=== PATIENT | female | born 1960 | race African-American/Black ===

== ENCOUNTER 2020-04-03 13:29 | Emergency (ER) | payer MEDICARE, SELFPAY ==
[2020-04-03 13:30] VITALS: BP 195/101; PULSE 85; RESP 16; TEMP 36.6; O2SAT 99; BMI 42.2
--- NOTE | 2020-04-03 13:42 | NURSING ---
NO OLD EKGS
--- NOTE | 2020-04-03 14:18 | ED.RN ---
PCP Dr. Stuart [phone] sheila
--- NOTE | 2020-04-03 14:22 | EKG12_ITS ---
Test Reason : CP Blood Pressure : / mmHG Vent. Rate : 085 BPM Atrial Rate : 085 BPM P-R Int : 132 ms QRS Dur : 078 ms QT Int : 394 ms P-R-T Axes : 029 005 042 degrees QTc Int : 468 ms Normal sinus rhythm Normal ECG Confirmed by ELISABETH ARCEO ([id number]), editorial director JARETT FLYNN ([id number]) on 04/09/2020 9:51:32 AM Referred By: COLEMAN Confirmed By:ELISABETH ARCEO
--- NOTE | 2020-04-03 14:30 | RAD_ITS ---
STUDY: X-RAY CHEST REASON FOR EXAM: Female, 59 years old. CHEST TIGHTNESS AND SOB X 1 MONTH TECHNIQUE: Single AP portable view of the chest. COMPARISON: None. FINDINGS: The lungs are clear and expanded. There is no demonstrated pleural abnormality. Normal size heart. Normal mediastinum and saundra. Normal visualized pulmonary arteries. Normal visualized aortic arch and descending thoracic aorta. Normal visualized thoracic spine. There is degenerative osteoarthritis of the bilateral shoulders. There is no demonstrated abnormality of the visualized soft tissue structures of the upper abdomen. RAD/Chest 1 View (Portable) IMPRESSION: Normal x-ray examination of the chest. Electronically Signed: Anil Cantor, at 15:02 EDT Tel , Service support ,
[2020-04-03 15:30] VITALS: PULSE 81; RESP 15; O2SAT 97
--- NOTE | 2020-04-03 15:41 | ED.DCSUM_ITS ---
- ER Visit Summary Date of Service: 04/03/20 Chief Complaint: Chest pressure History of Present Illness: The patient is a 59 F who complains of chest pressure. Is been ongoing for the past month. She describes as pressure and also the sensation that something is stuck in her throat. She states that [facility] [place] did help with this. She states that she has mild dyspnea. She also complains of pain of the right breast. She states that she has been eating and drinking normally. She does have a history of GERD and takes omeprazole daily. She has no cardiac issues. She has had no abdominal surgeries in the past. No history of upper endoscopies. Physical Examination: Vital signs reviewed. HEENT exam unremarkable. Heart is regular rate and rhythm without murmurs. Lungs are clear to auscultation. Her chest wall is nontender to palpation. Abdomen is soft and nontender. Extremities reveal no edema. Peripheral pulses are equal. Skin exam normal. Neurologic exam normal. Test Results: EKG is sinus rhythm with a rate of 85. No ischemic changes. Chest x-ray normal. Laboratory studies show a chloride of 109, glucose 113. Troponin normal Emergency Department Course and Treatment: Patient was given a GI cocktail. She is handling her secretions normally. I have very low suspicion that this is actually an esophageal foreign body/occlusion/obstruction. I do not feel this is cardiac in nature as it is been ongoing for 1 month. It may be due to her GERD. She is already on omeprazole. At this point I do not feel she needs any further work-up. She will continue her home medications. I will give her follow-up with a surgeon who can do an endoscopy if the symptoms persist. Treatment Plan: [] Disposition: Discharge Impression: Chest pressure This note was generated with [employer] dictation software. It may contain incorrect words, spelling, and punctuation that were not noted in review of the chart prior to signing ED Disposition - Plan for ED Patient: Disposition: Home or Assisted Living Instructions: ED Chest Pain Atypical Unkn Cause Referrals: Savanah Mcintosh MD [Primary Care Provider] -
[2020-04-03 15:50] LABS: Absolute Lymphocyte Count 2.99 X10^3/uL (0.83-4.51); Absolute Neutrophil Count 4.9 X10^3/uL (2.0-7.7); Basophil# 0.02 X10^3/uL; Basophil% 0.2 % (0-1); Eosinophil# 0.18 X10^3/uL; Eosinophils% 2.1 % (0-5); Hematocrit 38.4 % (37-47); Hemoglobin 12.6 g/dL (12.0-15.0); Lymphocyte # 2.99 X10^3/ul (4.0); Lymphocyte % 34.6 % (19-41); Mean Corp Hgb Conc 32.8 g/dL (32-36); Mean Corpuscular Hgb 29.6 pg (27.0-32.0); Mean Corpuscular Volume 90.4 fL (81-99); Mean Platelet Vol. 10.8 fl (6.2-12.0); Monocyte# 0.54 X10^3/uL; Monocyte% 6.3 % (0-10); NRBC Flagged by Analyzer 0 % (0-5); Neutrophil # 4.89 X10^3/uL (2.7-7.7); Neutrophil % 56.6 % (47-70); Platelet Count 304 K/mm3 (150-450); RBC Distribution Width CV 12.4 % (11.6-14.6); RBC Distribution Width SD 39.8 fl (35.1-43.9); Red Blood Count 4.25 M/mm3 (4.2-5.4); White Blood Count 8.6 K/mm3 (4.4-11.0)
[2020-04-03 16:06] LABS: Anion Gap 2 (5-15); BUN 14 mg/dL (7-18); BUN/Creat Ratio 18.4 RATIO (10-20); Calcium,Total 9.6 mg/dL (8.5-10.1); Chloride 109 mmol/L (98-107); Creatinine, Serum 0.76 mg/dL (0.55-1.02); EST Glomerular Filtration Rate 83 mL/min (>60); Est Glom Filt Rate - Afr Amer 100 mL/min (>60); Estimated Creatinine Clearance 119.28 ml/min; Glucose 113 mg/dL (74-106); Potassium 4.7 mmol/L (3.5-5.1); Sodium Level 140 mmol/L (136-145)
[2020-04-03 16:38] VITALS: BP 138/74; PULSE 89; RESP 16; O2SAT 98
[2020-04-03] MEDS: Mag Hydrox/Al Hydrox/Simeth 30 ML UDC PO (16:38)
== END 2020-04-03 16:39 | disposition home or self-care (01) ==
PROVIDERS: Emergency Provider Emergency Medicine; PCP Internal Medicine
DX: R07.89 Other chest pain (principal); F17.200 Nicotine dependence, unspecified, uncomplicated; E11.9 Type 2 diabetes mellitus without complications; I10 Essential (primary) hypertension; K21.9 Gastro-esophageal reflux disease without esophagitis; Z79.84 Long term (current) use of oral hypoglycemic drugs
CPT/HCPCS: 71045; 80048; 84484; 85025; 93005; 99285; A4216